=== PATIENT | female | born 1980 | race Caucasian/White ===

== ENCOUNTER 2019-04-15 04:37 | Inpatient (IN) ==
[2019-04-15] MEDS ORDERED: DUONEB (A & A) INH ONE ×2 (05:05→06:13)
[2019-04-15] MEDS ORDERED: SOLU-MEDROL IV ONE (05:05)
--- NOTE | 2019-04-15 05:10 | EKG Report ---
Test Performed on : 04/15/2019 04:46:30 AM Test Reason : SOB Blood Pressure : / mmHG Vent. Rate : 105 BPM Atrial Rate : 105 BPM P-R Int : 118 ms QRS Dur : 084 ms QT Int : 334 ms P-R-T Axes : 061 085 041 degrees QTc Int : 441 ms Sinus tachycardia. Otherwise normal ECG No previous ECGs available Unconfirmed Result
--- NOTE | 2019-04-15 06:17 | PROVIDER DOCUMENTATION ---
HPI-General Adult - General Chief Complaint: Shortness of Breath Stated Complaint: SOB/FLU SX /ASTHMA Time Seen by Provider: 04/15/19 04:57 Source: patient Allergies/Adverse Reactions: Patient Allergies Allergy/AdvReac Type Severity Reaction Status Date / Time No Known Allergies Allergy Verified 07/28/13 06:05 Home Medications: Home Medication List Medication Instructions Recorded Confirmed Last Taken Type Albuterol Sulfate [Albuterol 2 puff INH Q4H PRN PRN 04/15/19 04/15/19 04/15/19 History Sulfate Hfa] Fluticasone/Vilanterol [Breo 2 puff INH DAILY 04/15/19 04/15/19 2 Days Ago History Ellipta 200-25 Mcg INH] ~04/13/19 Lisinopril 10 mg PO DAILY 04/15/19 04/15/19 Unknown History - History of Present Illness -Gen Adult Nature of Presenting Problems: Pt presents with URI x 2 days, cough, congestions, worsening sob, pmh of asthma, hasn't taken her asthma medication in the last couple of days, pt denies f/c, glynn, cp, ap, n/v/d. pt is lying in bed in no acute distress. Location of Pain/Injury: reports: none Pain Radiation: reports: no radiation Quality of Pain: reports: none Severity: reports: moderate Onset/Duration: reports: 2 days ago Timing: reports: still present Context/Activities at Onset: reports: none Modifying Factors: improves with: nothing Associated Symptoms: reports: cough, shortness of breath Similar Symptoms Previously?: Yes Recently seen or treated by another doctor?: No Review of Systems - Adult - REVIEW OF SYSTEMS - ADULT Constitutional: reports: no symptoms reported Eyes: reports: no symptoms reported Ears, Nose, Mouth & Throat: reports: no symptoms reported Cardiovascular: reports: no symptoms reported Respiratory: reports: see HPI Gastrointestinal: reports: no symptoms reported Genitourinary: reports: no symptoms reported Musculoskeletal: reports: no symptoms reported Integumentary: reports: no symptoms reported Neurological: reports: no symptoms reported Psychiatric: reports: no symptoms reported Endocrine: reports: no symptoms reported Hematologic/Lymphatic: reports: no symptoms reported Allergic/Immunologic: reports: no symptoms reported All Other Systems: Reviewed and Negative Past History - Adult - PAST MEDICAL HISTORY-ADULT Review of Records: reports: Old Records Reviewed, Nursing Assessment Review, Medications Reviewed, Social history reviewed & non-contributory. Major Childhood Illnesses: reports: denies history Cardiovascular: reports: denies history Respiratory: reports: asthma Gastrointestinal: reports: denies history Obstetrical/Gynecological: reports: denies history Genitourinary: reports: denies history Musculoskeletal: reports: denies history Neurological: reports: denies history Psychiatric: reports: denies history Endocrine/Immune: reports: denies history Other Conditions: reports: denies history Physical Exam-General - PHYSICAL EXAM-ADULT Initial Vital Signs Reviewed: Yes - CONSTITUTIONAL General Appearance: appears well - EYES Eyes: PERRL/EOMI - HEAD, EARS, NOSE, MOUTH & THROAT HENMT: normocephalic/atraumatic - NECK Neck: normal inspection - RESPIRATORY Respiratory: no respiratory distress, no accessory muscle use, wheezing - CARDIOVASCULAR Cardiovascular: tachycardia - GASTROINTESTINAL (ABDOMEN) Abdominal Exam: normal bowel sounds, non tender, soft - LYMPHATIC Lymphatic: no adenopathy - MUSCULOSKELETAL Back Exam: normal inspection Extremity: normal range of motion - SKIN Integumentary: normal color - NEUROLOGIC Neurologic: grossly normal - PSYCHIATRIC Psych/Mental Status: normal mood/affect Progress - PLAN OF CARE/RESULTS Progress/Plan/Lab Results: Vital Signs - 8 hr 04/15/19 04:51 04/15/19 05:01 04/15/19 05:30 Temperature 99.6 F Pulse Rate 99 H 104 H 88 Respiratory Rate 20 17 17 Blood Pressure 163/104 183/128 O2 Sat by Pulse Oximetry 91 L 93 L 97 Orders Category Date Time Status CHEST-1 VIEW [RAD] Stat Exams 04/15/19 05:05 Taken CBC WITH DIFF [HEME] Stat Lab 04/15/19 05:29 Results COMPREHENSIVE METABOLIC PANEL [CHEM] Stat Lab 04/15/19 05:29 Received INFLUENZA SCREEN A/B Stat Lab 04/15/19 05:13 Received TROPONIN T Stat Lab 04/15/19 05:29 Received Albuterol 2.5MG/Ipratrop 0.5MG [Duoneb (A & A)] Med 04/15/19 05:05 Discontinued 3 ml INH NOW ONE Albuterol 2.5MG/Ipratrop 0.5MG [Duoneb (A & A)] Med 04/15/19 06:13 Once 3 ml INH NOW ONE Methylprednisolone Sod Succ [Solu-Medrol] Med 04/15/19 05:05 Discontinued 125 mg IV NOW ONE Aerosol Treatments Routine Oth 04/15/19 05:06 Completed Aerosol Treatments Routine Oth 04/15/19 06:13 Ordered Aerosol Treatments Stat Oth 04/15/19 05:06 Completed Aerosol Treatments Stat Oth 04/15/19 06:13 Ordered EKG [EKG] Stat Ther 04/15/19 04:41 Ordered EKG [EKG] Stat Ther 04/15/19 05:05 Draft Result Diagrams: 04/15/19 08:08 04/15/19 05:29 - REASSESSMENT Reassessment #1 Time Reassessed: 10:19 (assumed care @ shift change, seen, examined. Has had URI, incr SOB for 2 days. No fever. CP only with breathing, cough. Was started on Lisinopril 10 mg on Thursday. On exam, Heart RRR, Lungs with decreased) Reassessment #2 Time Reassessed: 12:16 (FDEELS A LITTLE BETTER, BUT WHEN o2 REMOVED, SATS DROPPED TO 91) - CONSULTS/PCP/HOSPITALIST Notification #1 *Consult/PCP/Hospitalist*: MICHAEL Aguilar Time Discussed: 13:21 Consult Disposition: Will see in ED, Admit - CHANGE OF SHIFT REPORT (ED Provider) 1 Report Given and Care Transferred to:: Dr. Duenas Time of Transfer: 07:00 Departure - Departure Date of Disposition Decision: 04/15/19 Time of Disposition Decision: 12:16 DIAGNOSIS: Hypoxia Asthma exacerbation Qualifiers: Asthma severity: moderate Asthma persistence: persistent Qualified Code(s): J45.41 - Moderate persistent asthma with (acute) exacerbation Disposition: ADMITTED INPATIENT 09 Certified Medical Emergency: Emergent Condition: Good Referrals and Follow-Ups: Rito Lewis DO [Primary Care Provider] - - Critical Care Note This patient required my direct & personal management of CC.: No Attestation - Physician/ YAN Attestation Patient care was provided by Advanced Practice Provider:: No The physician spent face to face time with patient:: Yes Advanced Practice Provider documentation review:: Supervising physician onsite and consulted in the evaluation and care of this patient. The physician did have a face to face encounter with the patient.
[2019-04-15 06:28] LABS: AGAP 19; ALB/GLOB RATIO 1.5; ALBUMIN 4.6 g/dL (3.5-5.0); ALKALINE PHOSPHATASE 93 U/L (32-104); BUN 9 mg/dL (8-22); CHLORIDE 99 mmol/L (98-107); COSMO 275; CREATININE 0.7 mg/dL (0.5-0.9); ESTIMATED GFR > 60; GLUCOSE 138 mg/dL (70-104); GOT 46 U/L (10-30); GPT 39 U/L (10-36); SODIUM 137 mmol/L (136-145); TCO2 19 mmol/L (25-35); TOTAL BILIRUBIN 0.24 mg/dL (0.20-1.00); TOTAL PROTEIN 7.7 g/dL (6.3-8.3)
--- NOTE | 2019-04-15 07:21 | Diag Imaging Result Doc PS360 ---
EXAM: CHEST-1 VIEW HISTORY: sob TECHNIQUE: Single view COMPARISON: None. FINDINGS: Poor inspiratory effort. There is mild vascular distention. No consolidation. No pleural effusions identified. Heart is borderline mildly prominent. IMPRESSION: Pulmonary edema Electronically signed by Jose Michel 04/15/2019 7:18 AM
[2019-04-15 08:46] LABS: BASO# 0.03 X1000 (0.0-0.2); BASO% 0.3 % (0.0-0.8); EOS# 0.07 X1000 (0.0-0.7); EOS% 0.6 % (0.0-10.0); HEMATOCRIT 43.3 % (37.0-47.0); HEMOGLOBIN 14.3 g/dL (12.0-16.0); IMM GRAN# 0.04 X1000 (0.0-0.04); IMM GRAN% 0.4 % (0.0-0.5); LYMPH# 0.74 X1000 (1.2-3.4); LYMPH% 6.7 % (20.5-51.1); MCH 28.9 PG (27-31); MCV 87.7 FL (81-99); MONO# 0.53 X1000 (0.11-0.59); MONO% 4.8 % (1.7-9.3); MPV 10.7 FL (7.4-10.4); NEUT# 9.56 X1000 (1.4-6.5); NEUT% 87.2 % (42.2-75.2); PLT 234 X1000 (130-400); RBC 4.94 XMIL (4.2-5.4); WBC 10.97 X1000 (4.8-10.8)
[2019-04-15 09:13] LABS: EOS 2 % (1-10); LARGE PLATELETS 2+; LYMPHS 20 % (21-51); MONO 2 % (1-9); SEGS 74 % (42-75)
[2019-04-15] MEDS ORDERED: CATAPRES PO ONE (10:17)
[2019-04-15] MEDS ORDERED: ALBUTEROL NEB INH ONE (10:17)
[2019-04-15] MEDS ORDERED: PULMICORT INH ONE (10:17)
[2019-04-15] MEDS ORDERED: ZOFRAN IV PRN (15:02)
[2019-04-15] MEDS ORDERED: DUONEB (A & A) INH PRN (15:05)
[2019-04-15] MEDS ORDERED: LASIX IV ONE (15:05)
--- NOTE | 2019-04-15 15:58 | HISTORY AND PHYSICAL ---
ADDENDUM: The patient was seen and examined by me [id number]. All the laboratory, vital signs and images were reviewed. Chest x-ray did not show any infiltrates, but possible pulmonary edema. She will receive a low dose of Lasix today. This patient is a 39-year-old female with a past medical history of asthma. Also as per the patient, she has been recently diagnosed with type 2 diabetes, and her BMI is elevated at 51.5. As per the patient, she has been having shortness of breath for a week, but yesterday she was getting worse to the point that she was unable to sleep, and she needed to rest, sitting up at 90 degrees. She came to the emergency department where she received some treatment, including breathing treatment, steroids and oxygen, but she is still feeling short of breath, and the oxygen saturation is still dropping. As per the patient she has been coughing up some phlegm, yellowish-brown, and she has been having also some chills. Probably this patient has bronchitis/pneumonia. We will place this patient on the medical floor. She will receive breathing treatment, oxygen supplementation, antibiotics and steroids. She is wheezing mostly at the level of the upper part of the lungs. I agree with the rest of the nurse practitioner's assessment and plan. cc: Calin Stephenson MD
[2019-04-15] MEDS: DUONEB (A & A) INH SCH ×4 (16:00→23:10)
--- NOTE | 2019-04-15 16:53 | HISTORY AND PHYSICAL ---
CHIEF COMPLAINT: Shortness of breath. HPI: This is a 39-year-old female with a history of hypertension, asthma and morbid obesity and diabetes mellitus. She presents to the emergency room complaining of shortness of breath for a week. She stated that over the last 24 hours it progressed to the point that she has 90 degree orthopnea. She was able to work last night although she said it was difficult working. She had to move slow and she got out of breath with the least little bit of activity. After she clocked out she came to the emergency room for evaluation. On arrival to the emergency room, she had room air saturations of 91% with respiratory rates ranging 20 to 25. Her saturations did increase to 97, 98 on 2 L nasal cannula and respiratory rates decreased is 17 to 19. Chest x-ray revealed pulmonary edema. In talking with Ms. Dupont she has recently been diagnosed with diabetes mellitus in fact she has not started on metformin as she has not received her prescription. She reports a yellowish brown secretions. She does report a productive cough over the last 48 hours with yellowish brown secretions. She states they have been getting thicker, harder to cough up and over the last 24 hours she has had body aches and subjective fevers. PAST MEDICAL HISTORY: 1. Diabetes mellitus type 2. 2. Hypertension. 3. Asthma. 4. Morbid obesity. PAST SURGICAL HISTORY: D and C x2 and bilateral bunion surgery. SOCIAL HISTORY: She is . 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 She denies any alcohol, tobacco, or illicit drug use. Her does smoke, although he states he does not smoke in the house or in the car. ALLERGIES: No known drug allergies. HOME MEDICATIONS: Lisinopril 10 mg p.o. daily, Breo Ellipta 2 puffs daily and albuterol inhaler 2 puffs q.4 hours p.r.n. REVIEW OF SYSTEMS: Discussed with the patient with pertinent positives stated in the HPI. She denied any syncope or dizziness, chest pain, palpitations, any nausea, vomiting, diarrhea, constipation, black or bloody vomitus or stools, any hematuria, dysuria, frequency, urgency. PHYSICAL EXAMINATION: GENERAL: This is a 39-year-old female who is sitting up on the bedside in mild respiratory distress. VITAL SIGNS: Blood pressure is 152/100 with a heart rate of 90, respirations are 18, temperature is 98.2 degrees oral with O2 saturations that are now 94 to 95 percent on 6 L nasal cannula. HEENT: Pupils are equal, round, react to light. EOMs are intact. Sclerae are anicteric. Head is normocephalic, atraumatic. Mucous membranes are moist. NECK: Supple with trachea midline. No JVD. CARDIOVASCULAR: Regular rate and rhythm. She is tachycardic. S1 and S2 appreciated. No S3. No murmur. She has bilateral 2+ pitting edema to her knees that she states is chronic. Calves are nontender with peripheral pulses palpable x4 extremities. PULMONARY: Breath sounds with crackles throughout, inspiratory, expiratory wheezes. She does have some increased work of breathing. Chest rises and falls symmetric with respiration. GASTROINTESTINAL: Abdomen soft, nontender, nondistended with bowel sounds in all 4 quadrants. : No CVA or suprapubic tenderness. NEUROLOGIC: She is alert, oriented x3. SKIN: Warm and dry . LABS: WBC is 10 with a hemoglobin of 14.3, hematocrit 43.3 and platelets 234,000. Sodium is 137, potassium 5, BUN 9, creatinine 0.7 with a glucose of 138. Troponin is negative. Influenza screen is negative for flu A and B. Chest x-ray reveals pulmonary edema. ASSESSMENT AND PLAN: 1. Acute hypoxemic respiratory failure. 2. Asthma, acute exacerbation in a patient who is not controlled well at home. She does report using her rescue inhaler at least daily sometimes more for the last 2 or 3 months. 3. Leukocytosis. 4. Hypertension. 5. Diabetes mellitus type 2. PLAN: The patient will be admitted to the medical floor. She will be placed on telemetry. We will continue with supplemental oxygen, give DuoNeb q.4 hours with q.2 hours p.r.n., Lasix 20 now and monitor. We will check blood cultures, sputum culture and give antibiotic coverage of Rocephin and azithromycin and further antibiotics will be culture driven. Check hemoglobin A1c as well as a TSH. Check a BMP and CBC in the morning. Get steroids to taper. Will identify her home medications and once verified will review and restart as appropriate. For cough will give Robitussin AC. DVT prophylaxis, Lovenox and GI prophylaxis Prilosec. She will be placed on a diabetic diet, fingerstick blood sugars with pattern blood glucose, peak flows every 12 hours. Further treatments pending hospital course. Dictated by JIGAR Brooks for Calin Stephenson MD cc: JIGAR Brooks MD
[2019-04-15] MEDS: LOVENOX SUBQ SCH (17:03)
[2019-04-15] MEDS: SOLU-MEDROL IV SCH (17:03)
[2019-04-15] MEDS: ZITHROMAX PO SCH (17:04)
[2019-04-15] MEDS: HUMALOG SUBQ SCH ×2 (17:47→21:45)
[2019-04-15] MEDS: ROCEPHIN 1 GM in NS 50 ML IV SCH (21:45)
[2019-04-16] MEDS: SOLU-MEDROL IV SCH ×3 (02:23→17:18)
[2019-04-16] MEDS: DUONEB (A & A) INH SCH ×6 (04:29→23:14)
[2019-04-16] MEDS: PRILOSEC PO SCH (06:14)
[2019-04-16] MEDS: HUMALOG SUBQ SCH ×4 (06:14→20:31)
[2019-04-16 07:31] LABS: HEMATOCRIT 42.4 % (37.0-47.0); HEMOGLOBIN 13.7 g/dL (12.0-16.0); IMM GRAN# 0.05 X1000 (0.0-0.04); IMM GRAN% 0.5 % (0.0-0.5); LYMPH# 0.75 X1000 (1.2-3.4); LYMPH% 7.7 % (20.5-51.1); MCH 28.4 PG (27-31); MCHC 32.3 g/dL (33-37); MONO# 0.48 X1000 (0.11-0.59); MONO% 4.9 % (1.7-9.3); MPV 10.8 FL (7.4-10.4); NEUT# 8.44 X1000 (1.4-6.5); NEUT% 86.9 % (42.2-75.2); PLT 244 X1000 (130-400); RBC 4.82 XMIL (4.2-5.4); RDW 14.2 % (11.5-14.5); WBC 9.72 X1000 (4.8-10.8)
[2019-04-16 07:47] LABS: HEMOGLOBIN A1C 7.3 % (4.8-6.0)
[2019-04-16 07:48] LABS: AGAP 14; BUN 12 mg/dL (8-22); CALCIUM 8.8 mg/dL (8.8-10.2); CHLORIDE 95 mmol/L (98-107); COSMO 278; CREATININE 0.7 mg/dL (0.5-0.9); ESTIMATED GFR > 60; GLUCOSE 316 mg/dL (70-104); POTASSIUM 3.4 mmol/L (3.5-5.1); SODIUM 133 mmol/L (136-145); TCO2 24 mmol/L (25-35)
[2019-04-16] MEDS ORDERED: LANTUS INSULIN SUBQ ONE (09:39)
[2019-04-16] MEDS: ZITHROMAX PO SCH (10:16)
[2019-04-16] MEDS: PRINIVIL PO SCH (10:16)
--- NOTE | 2019-04-16 11:39 | PROGRESS NOTE ---
DATE: 04/16/2019 SUBJECTIVE: The patient seems to be feeling better today, but she is still having shortness of breath and wheezing. I will continue with the same management except that I will decrease a little bit the dose of the steroids from 60 q.8 hours to 40 q.8 hours. I will continue also with antibiotics. OBJECTIVE: Vital Signs: Temperature 98.1 degrees, pulse 107, respiratory rate 16, blood pressure 166/84, oxygen saturation 93 on 5 L of nasal cannula. HEENT: Head normocephalic, atraumatic. PERRLA. Neck: Supple. No JVD. No masses. Central trachea. Chest: Decreased breath sounds globally with prolonged expiratory phase and bilateral expiratory wheezing, mostly at the upper part of the thoracic area. Abdomen: Soft. Obese. Protuberant. Nontender. Nondistended. I cannot feel hepatosplenomegaly. Extremities: No edema. No clubbing. No cyanosis. Neurological: The patient is alert and oriented x3. No focal deficits. ASSESSMENT AND PLAN: 1. Acute hypoxemic respiratory failure due to asthma and probably bronchitis, I have placed this patient on antibiotics, breathing treatment, steroids and oxygen supplementation. I will continue with same management. She is feeling better. 2. Asthma, acute exacerbation, I do not think this patient is controlling her asthma at home. She has a rescue inhaler. We will continue with same management for now. 3. Bronchitis. Continue with antibiotics. 4. Leukocytosis, aware. Today the leukocyte count decreased from 10.9 to 9.7, but I believe due to the steroids, probably it will go up again. 5. Recent diagnosis of type 2 diabetes. This patient is morbidly obese, likely after losing some weight her diabetes is going to be controlled. Her hemoglobin A1c is 7.3 at this moment. 6. Hypertension. We will monitor for now. She is on lisinopril which I will continue. cc: Calin Stephenson MD
[2019-04-16] MEDS: LOVENOX SUBQ SCH (17:18)
[2019-04-16] MEDS: ROCEPHIN 1 GM in NS 50 ML IV SCH (20:31)
[2019-04-17] MEDS: SOLU-MEDROL IV SCH ×3 (01:29→17:45)
[2019-04-17] MEDS: DUONEB (A & A) INH SCH ×6 (03:28→22:54)
[2019-04-17] MEDS: PRILOSEC PO SCH (06:49)
[2019-04-17] MEDS: HUMALOG SUBQ SCH ×4 (06:50→21:26)
[2019-04-17 07:35] LABS: AGAP 16; BUN 13 mg/dL (8-22); CALCIUM 8.7 mg/dL (8.8-10.2); CHLORIDE 97 mmol/L (98-107); COSMO 280; CREATININE 0.7 mg/dL (0.5-0.9); ESTIMATED GFR > 60; GLUCOSE 201 mg/dL (70-104); POTASSIUM 3.9 mmol/L (3.5-5.1); SODIUM 137 mmol/L (136-145); TCO2 24 mmol/L (25-35)
[2019-04-17] MEDS: ROBITUSSIN-AC PO PRN ×2 (09:37→17:55)
[2019-04-17] MEDS: PRINIVIL PO SCH (09:37)
[2019-04-17] MEDS: ZITHROMAX PO SCH (09:37)
[2019-04-17] MEDS ORDERED: LANTUS INSULIN SUBQ ONE (11:08)
[2019-04-17] MEDS: NORVASC PO SCH ×2 (12:29→21:25)
--- NOTE | 2019-04-17 13:48 | PROGRESS NOTE ---
DATE: 04/17/2019 SUBJECTIVE: The patient is feeling better, but she is still having shortness of breath and generalized wheezing. Continue with the same management. Will continue with steroids, and I will put this patient on Breo, which has been recommended for her a few days ago, but she has not been able to take it too much, I think just one time. OBJECTIVE: Vital Signs: Temperature 98.6 degrees, pulse 111, respiratory rate 20, blood pressure 168/79, oxygen saturation 94% on 5 L nasal cannula. HEENT: Head normocephalic. No trauma. PERRLA. Neck: Supple. No JVD. No masses. Central trachea. Chest: Decreased breath sounds globally with prolonged expiratory phase and bilateral expiratory wheezing, mostly in the upper part of the thoracic area. Abdomen: Soft, obese, protuberant, nontender, nondistended. I cannot feel hepatosplenomegaly. Extremities: No edema, no clubbing, no cyanosis. Neurological: The patient is alert and oriented x3. No focal deficits. LABORATORY DATA: Sodium 137, potassium 3.9, chloride 97, bicarbonate 24, BUN 13, creatinine 0.7, glucose 201, calcium 8.7. ASSESSMENT AND PLAN: 1. Acute hypoxemic respiratory failure due to asthma and probably bronchitis. I have placed this patient on antibiotics, breathing treatment, steroids, and oxygen supplementation. I will continue with the same management. She is feeling better, but she is still complaining of shortness of breath and wheezing. 2. Asthma exacerbation. Continue with the same management per #1. 3. Bronchitis. Continue with antibiotics. 4. Leukocytosis. Aware. Leukocyte count basically went down, and yesterday was within normal limits, but it can increase due to steroid use. 5. Recent diagnosis of type 2 diabetes. This patient is morbidly obese. Her hemoglobin A1c is 7.3. Hopefully, once she loses some weight, the diabetes will be more controlled. I will give her a dose of Lantus today since she is getting steroids. 6. Hypertension. I put this patient back on her lisinopril yesterday, and I added amlodipine to her medications today. Will monitor. cc: Calin Stephenson MD
[2019-04-17] MEDS: BREO ELLIPTA 100/25 MCG INH INH SCH (15:41)
[2019-04-17] MEDS: LOVENOX SUBQ SCH (17:46)
[2019-04-17] MEDS: ROCEPHIN 1 GM in NS 50 ML IV SCH (21:26)
[2019-04-18] MEDS: DUONEB (A & A) INH SCH ×6 (03:31→22:15)
[2019-04-18] MEDS: ROBITUSSIN-AC PO PRN ×2 (06:33→20:39)
[2019-04-18] MEDS: PRILOSEC PO SCH (06:34)
[2019-04-18] MEDS: SOLU-MEDROL IV SCH ×3 (06:34→20:38)
[2019-04-18] MEDS: BREO ELLIPTA 100/25 MCG INH INH SCH (07:41)
[2019-04-18 08:07] LABS: BASO# 0.02 X1000 (0.0-0.2); BASO% 0.2 % (0.0-0.8); HEMATOCRIT 45.2 % (37.0-47.0); HEMOGLOBIN 14.2 g/dL (12.0-16.0); IMM GRAN# 0.09 X1000 (0.0-0.04); IMM GRAN% 0.7 % (0.0-0.5); LYMPH# 2.52 X1000 (1.2-3.4); LYMPH% 20.4 % (20.5-51.1); MCH 28.1 PG (27-31); MCHC 31.4 g/dL (33-37); MCV 89.3 FL (81-99); MONO# 1.05 X1000 (0.11-0.59); MONO% 8.5 % (1.7-9.3); MPV 10.7 FL (7.4-10.4); NEUT# 8.66 X1000 (1.4-6.5); NEUT% 70.2 % (42.2-75.2); PLT 237 X1000 (130-400); RBC 5.06 XMIL (4.2-5.4); RDW 14.4 % (11.5-14.5); WBC 12.34 X1000 (4.8-10.8)
[2019-04-18 08:25] LABS: AGAP 14; BUN 12 mg/dL (8-22); CALCIUM 9.2 mg/dL (8.8-10.2); CHLORIDE 99 mmol/L (98-107); COSMO 283; CREATININE 0.6 mg/dL (0.5-0.9); ESTIMATED GFR > 60; GLUCOSE 141 mg/dL (70-104); POTASSIUM 3.6 mmol/L (3.5-5.1); SODIUM 141 mmol/L (136-145); TCO2 28 mmol/L (25-35)
[2019-04-18] MEDS: HUMALOG SUBQ SCH ×4 (09:11→20:42)
[2019-04-18] MEDS: ZITHROMAX PO SCH (09:14)
[2019-04-18] MEDS: PRINIVIL PO SCH (09:14)
[2019-04-18] MEDS: NORVASC PO SCH ×2 (09:15→20:38)
--- NOTE | 2019-04-18 16:26 | PROGRESS NOTE ---
DATE: 04/18/2019 SUBJECTIVE: This patient is feeling better. She is still having shortness of breath and generalized weakness. For now we will continue with the same management. I will continue with steroids. I have placed this patient on Breo which has been prescribed for her a few days ago but she has not been able to use it too much, I think just 1 time. She is still on nasal cannula around 4 L. She has requested the possibility of being evaluated by a sleep doctor and for that I have requested Dr. Arguello to schedule this patient for a possible sleep study as an outpatient. OBJECTIVE: Vital Signs: Temperature 98.2 degrees, pulse 90, respiratory rate 22, blood pressure 143/73, oxygen saturation 92 on 4 L of nasal cannula. HEENT: Head normocephalic. No trauma. PERRLA. Neck: Supple. No JVD. No masses. Central trachea. Chest: Decreased breath sounds globally with prolonged expiratory phase and mild end-expiratory wheezing mostly in the upper part of the thoracic area. Abdomen: Soft, obese, protuberant, nontender, nondistended. I cannot feel hepatosplenomegaly. Extremities: No edema. No clubbing. No cyanosis. Neurological: The patient is alert. She is oriented x3. No focal deficits. LABORATORY: WBC 12.3, hemoglobin 14.2, hematocrit 45.2, and platelets 237,000. Sodium 141, potassium 3.6, chloride 99, bicarbonate 28, BUN 12, creatinine 0.6, glucose 141, calcium 9.2. ASSESSMENT AND PLAN: 1. Acute hypoxemic respiratory failure due to asthma and probably bronchitis. I have placed this patient on antibiotics, breathing treatment, steroids, and oxygen supplementation. I will continue with the same management. I have started this patient on Breo also. 2. Asthma exacerbation. Continue with same management per #1. 3. Bronchitis. Continue with antibiotics. 4. Leukocytosis, aware. White blood cell count was normal but increased a little bit, probably due to steroid use. 5. Recent diagnosis of type 2 diabetes. Patient is morbidly obese. Hemoglobin A1c is 7.3. Hopefully, if she loses some weight the diabetes will be controlled without medication. 6. Hypertension. Her blood pressure is still elevated but better compared with admission. I have seen readings in the 110s. I will continue with the same management for now but probably we need to increase the dose of the amlodipine from 2.5 mg twice a day to 5 mg twice a day if the blood pressure is still elevated. 7. Possible sleep apnea. I have requested an evaluation by a sleep doctor. cc: Calin Stephenson MD
[2019-04-18] MEDS: LOVENOX SUBQ SCH (18:25)
[2019-04-18] MEDS: ROCEPHIN 1 GM in NS 50 ML IV SCH (20:38)
[2019-04-19] MEDS: DUONEB (A & A) INH SCH ×6 (03:25→22:54)
[2019-04-19] MEDS: PRILOSEC PO SCH (06:08)
[2019-04-19] MEDS: SOLU-MEDROL IV SCH ×3 (06:08→21:36)
[2019-04-19] MEDS: HUMALOG SUBQ SCH ×4 (06:09→21:34)
[2019-04-19] MEDS: ROBITUSSIN-AC PO PRN ×2 (06:14→13:36)
[2019-04-19] MEDS: BREO ELLIPTA 100/25 MCG INH INH SCH (07:40)
[2019-04-19 08:19] LABS: AGAP 14; BUN 14 mg/dL (8-22); CALCIUM 8.9 mg/dL (8.8-10.2); CHLORIDE 98 mmol/L (98-107); COSMO 286; CREATININE 0.6 mg/dL (0.5-0.9); ESTIMATED GFR > 60; GLUCOSE 216 mg/dL (70-104); POTASSIUM 3.8 mmol/L (3.5-5.1); SODIUM 140 mmol/L (136-145); TCO2 28 mmol/L (25-35)
[2019-04-19 08:47] LABS: BASO# 0.08 X1000 (0.0-0.2); BASO% 0.6 % (0.0-0.8); HEMATOCRIT 44.7 % (37.0-47.0); HEMOGLOBIN 14.4 g/dL (12.0-16.0); IMM GRAN# 0.18 X1000 (0.0-0.04); IMM GRAN% 1.3 % (0.0-0.5); LYMPH# 2.89 X1000 (1.2-3.4); LYMPH% 20.4 % (20.5-51.1); MCH 28.6 PG (27-31); MCHC 32.2 g/dL (33-37); MCV 88.7 FL (81-99); MONO# 0.92 X1000 (0.11-0.59); MONO% 6.5 % (1.7-9.3); MPV 10.7 FL (7.4-10.4); NEUT# 10.07 X1000 (1.4-6.5); NEUT% 71.2 % (42.2-75.2); PLT 241 X1000 (130-400); RBC 5.04 XMIL (4.2-5.4); RDW 13.9 % (11.5-14.5); WBC 14.14 X1000 (4.8-10.8)
[2019-04-19] MEDS: NORVASC PO SCH ×2 (10:14→21:36)
[2019-04-19] MEDS: ZITHROMAX PO SCH (10:15)
[2019-04-19] MEDS: PRINIVIL PO SCH (10:15)
[2019-04-19 10:42] LABS: LYMPHS 22 % (21-51); MONO 2 % (1-9); SEGS 76 % (42-75)
--- NOTE | 2019-04-19 15:37 | PROGRESS NOTE ---
DATE: 04/19/2019 SUBJECTIVE: The patient reports still feeling short of breath but less in comparing with admission. OBJECTIVE: Vital Signs: Temperature 98.2 degrees, heart rate 73, respiratory rate 20, blood pressure 132/83, O2 saturation 95% on 4 L nasal cannula. General: This is a morbidly obese 39- year-old female lying in bed, in no acute distress. Cardiovascular: S1, S2 heard. No murmurs, gallops, or rubs. Regular rate and rhythm. Respiratory: Decreased breath sounds globally with prolonged respiratory phase and mild end-expiratory wheezing mostly noted in upper part of both lungs. Abdomen: Soft, obese, protuberant, nontender to palpation. Bowel sounds present. No organomegaly. Extremities: No clubbing, cyanosis, or edema. Peripheral pulses present in both legs. Neurological: Patient alert and oriented x3. Moves 4 extremities. LABORATORY DATA: Reviewed. ASSESSMENT AND PLAN: 1. Acute hypoxemic respiratory failure secondary to acute bronchitis. Patient is on intravenous steroids, antibiotics (in this case Zithromax and ceftriaxone), and also IV fluids. The patient is still requiring 4 L of oxygen by nasal cannula, and yesterday she was requiring 5. In any case, we will continue to monitor this patient closely. Most likely she will need at least 48 hours to see if this patient is ready to go home. At this point, we will continue to monitor. 2. Recent diagnosis of diabetes type 2. Patient is on sliding scale insulin. Hopefully if she loses some weight, she may control this disease with only diet. We will continue with sliding scale insulin as well. 3. Hypertension. Blood pressure is much better today. She is receiving amlodipine 2.5 mg p.o. b.i.d. We will continue with the same management. 4. Possible sleep apnea. Aware. 5. Disposition. This patient will stay in the hospital at least 48 hours to see how she does and see if she is requiring less oxygen supplementation. cc: Melo Draper MD
[2019-04-19] MEDS: LOVENOX SUBQ SCH (16:22)
[2019-04-19] MEDS: ROCEPHIN 1 GM in NS 50 ML IV SCH (21:35)
--- NOTE | 2019-04-19 21:51 | CONSULTATION ---
DATE OF CONSULTATION: 04/19/2019 REQUESTING PROVIDER: Dr. Calin Sosa. REASON FOR CONSULTATION: Sleep apnea evaluation, history of asthma. HISTORY OF PRESENT ILLNESS: This is a 39-year-old female with a medical history of newly diagnosed hypertension, newly diagnosed diabetes mellitus type 2, asthma and morbid obesity. She presented to the ER on 04/15/2019 with worsening shortness of breath, cough, and congestion. Initial workup in the ER revealed acute hypoxic respiratory failure secondary to asthma exacerbation. She has been treated with bronchodilators, azithromycin, ceftriaxone and IV Solu- Medrol since admission. The patient currently is sitting on the edge of the bed. She states she is feeling better. She is on nasal cannula at 5 L. She still has shortness of breath, which per the patient has been improving. She reports witnessed snoring, but no gasping or choking sensations that arouses the patient from sleep, No insomnia or frequent arousals or tossing and turning during the night. She has no morning headache. She usually is tired and sleepy during the daytime, as she works 5 nights a week. PAST MEDICAL HISTORY: 1. Diabetes mellitus type 2 diagnosed last Thursday. 2. Hypertension diagnosed last Thursday. 3. Asthma. 4. Morbid obesity. Current BMI 51.5. PAST SURGICAL HISTORY: 1. D and C x2. 2. Bilateral bunion surgery. SOCIAL HISTORY: The patient is and lives at home. She has no kids. 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 She has 1 dog and 3 cats indoors as pets. She has no history of alcohol, tobacco, or illicit drug use. The patient's is a daily smoker, but he does not smoke in the house or in the car. FAMILY HISTORY: Unknown. ALLERGIES: No known drug allergies. REVIEW OF SYSTEMS: A 10-point review of systems was conducted, and the pertinent is listed within the HPI. She still has shortness of breath, productive cough with some saliva-type phlegm, and generalized weakness. She has no chest pain, palpitation, nausea, vomiting, bowel habit change, or urination discomfort. PHYSICAL EXAMINATION: Vital Signs: Temperature 97.5 degrees, blood pressure 150/81, pulse 82, respiratory rate 24, oxygen saturation 97% on nasal cannula at 5. General: Morbidly obese. Sitting on the edge of the bed with no acute distress noted. HEENT: Atraumatic. Trachea midline. Mucosa pink and moist. Respiratory: Even and unlabored. Symmetrical excursion. Auscultation reveals diminished breathing sounds bilaterally and prolonged expiratory phase. No wheezing noted at this time. Gastrointestinal: Soft, protuberant, nontender. Normoactive bowel sounds in all 4 quadrants. Extremities: No pedal edema. No cyanosis. No clubbing. Dorsalis pedis 2+ bilaterally. Neurologic: Alert and oriented x4. Speech fluent. Follows commands. LABORATORY DATA: White blood cell 14.14, hemoglobin 14.4, hematocrit 44.7, platelet 241. Sodium 140, potassium 3.8, chloride 98, carbon dioxide 28, BUN 14, creatinine 0.6, glucose 260. ASSESSMENT: This is a 39-year-old female with a medical history of newly diagnosed hypertension, newly diagnosed diabetes mellitus type 2, asthma, and morbid obesity. She has been admitted since 04/15/2019 with acute hypoxic respiratory failure secondary to asthma exacerbation. 1. Acute hypoxic respiratory failure. 2. Morbid obesity. 3. Asthma exacerbation. 4. Possible obstructive sleep apnea with witnessed snoring. PLAN: 1. Continue supplemental oxygen as needed. 2. Continue antibiotics, steroid and bronchodilators per hospitalist. 3. We will schedule an outpatient sleep study after patient is discharged. 4. Currently recommend the patient to sleep on sides or abdomen. 5. Continue GI and DVT prophylaxis. Thank you for the courtesy of this consult. Dictated by JIGAR Oliver for Kristyn Arguello MD cc: JIGAR Oliver MD [facility]
[2019-04-20] MEDS: DUONEB (A & A) INH SCH ×4 (03:39→16:31)
[2019-04-20] MEDS: SOLU-MEDROL IV SCH ×2 (04:38→13:16)
[2019-04-20] MEDS: ROBITUSSIN-AC PO PRN (05:50)
[2019-04-20] MEDS: HUMALOG SUBQ SCH ×4 (05:53→17:05)
[2019-04-20] MEDS: PRILOSEC PO SCH ×2 (05:54→06:05)
--- NOTE | 2019-04-20 06:02 | Diag Imaging Result Doc PS360 ---
EXAM: CHEST-1 VIEW HISTORY: SOB TECHNIQUE: Single view COMPARISON: 04/15/2019 FINDINGS: Poor inspiratory effort. No cardiomegaly. Mild pulmonary edema. No consolidation. Tiny left pleural effusion. IMPRESSION: No interval improvement Electronically signed by Jose Michel 04/20/2019 6:00 AM
[2019-04-20] MEDS: BREO ELLIPTA 100/25 MCG INH INH SCH (08:29)
[2019-04-20] MEDS: PRINIVIL PO SCH (09:01)
[2019-04-20] MEDS: ZITHROMAX PO SCH (09:01)
[2019-04-20] MEDS: NORVASC PO SCH (09:02)
[2019-04-20 15:21] VITALS: BP 153/88
[2019-04-20] MEDS: LOVENOX SUBQ SCH (17:06)
[2019-04-20] MEDS ORDERED: FLONASE NAS SCH (21:00)
[2019-04-21] MEDS ORDERED: ZYRTEC PO SCH (09:00)
--- NOTE | 2019-04-21 14:40 | DISCHARGE SUMMARY ---
ADMISSION DATE: 04/15/2019 DISCHARGE DATE: 04/20/2019 DISCHARGE DIAGNOSES: 1. Acute respiratory failure secondary to acute asthma exacerbation resolved. 2. Hypertension. 3. Diabetes mellitus type 2.. PROCEDURES: Chest x-ray done on admission showed pulmonary edema. CONSULTATIONS: Dr. Arguello from Pulmonary. HOSPITAL COURSE: In brief, this is a 39-year-old female with newly diagnosed hypertension, diabetes mellitus, asthma, and morbid obesity who presented to the emergency department complaining of shortness of breath that was deemed to be acute asthma exacerbation. She was requiring 5 L of oxygen by nasal cannula. We were able to wean off of oxygen until today when she was not requiring any oxygen supplementation. Clinically, the patient was feeling better. There was less and less wheezing on physical examination on a daily basis. Today, she is going to be discharged in stable condition. DISCHARGE PHYSICAL EXAMINATION: Vital Signs: Temperature 97.3 degrees, heart rate 78, respiratory rate 20, blood pressure 153/88, and O2 saturation 91% on room air. General: This is an extremity morbidly obese 39-year-old, female lying in bed in no acute distress. Cardiovascular: S1, S2 heard. No murmurs, gallops, or rubs. Regular rate and rhythm. Respiratory: Almost no wheezing noted in both pulmonary bases. Patient not using any accessory muscles or having work of breathing. Abdomen: Soft. Nontender to palpation. Bowel sounds are present. No organomegaly. Extremities: No clubbing, cyanosis, or edema. Peripheral pulses present in both legs. Neurological: The patient alert and oriented x3. Moves all 4 extremities. DISCHARGE DISPOSITION: Home to self-care. DISCHARGE MEDICATION: 1. Levofloxacin 750 mg 1 tablet p.o. daily for a week. 2. Medrol Dosepak as directed. 3. Norvasc 2.5 mg 1 tablet p.o. b.i.d. 4. Lisinopril 10 mg 1 tablet p.o. daily. 5. Albuterol 2 puffs by inhalation every 4 hours as needed. 6. Breo Ellipta. 200/25 mcg 2 puffs inhalation daily. TIME SPENT: Time discharging this patient was 33 minutes. cc: Melo Draper MD
== END 2019-04-20 18:45 | disposition home or self-care (01) | DRG 189 ==
LOC: ED 04:37 → EDIPHOLD 04:38 → SUATTDRO 04:38 → 3N 16:12
PROVIDERS: ATTEND Internal Medicine